=== PATIENT | female | born 1935 | race Caucasian/White ===

== ENCOUNTER 2018-09-21 19:52 | Emergency (ER) | payer MEDICARE, OTHER ==
[~2018-09-21] VITALS: Ht 154.9 cm; Wt 74.8 kg
[~2018-09-21 19:52] MED LIST: AMLODIPINE BESYL5 MG PO; CELEBREX200 MG PO; FOLIC ACID PO; LABETALOL HCL200 MG PO; METHOTREXATE2.5 MG PO; PREVACID15 M1 PO; SYNTHROID75 MCG PO; TRIAMTERENE-HC1 EAC2 PO
--- OUTSIDE RECORDS SUMMARY | 2018-09-21 19:56 | XMS REPORT | Summary of Care ---
Author Author [facility] Organization [facility] Address Unknown Phone Unavailable Encounter HQ Encntr_alileonela(FIN) [id number] Date(s): 07/07/16 - 07/07/16 [facility] [address] [place] [address]- Discharge Disposition: Home or Self Care Attending Physician: Hermelinda Handley MD Admitting Physician: Hermeilnda Handley MD Vital Signs No data available for this section Problem List No data available for this section Allergies, Adverse Reactions, Alerts Substance Reaction Severity Status penicillins Active Medications No data available for this section Results No data available for this section Immunizations No data available for this section Procedures No data available for this section Social History No data available for this section Assessment and Plan No data available for this section
--- OUTSIDE RECORDS SUMMARY | 2018-09-21 19:56 | XMS REPORT | Summary of Care ---
Author Author [facility] Address Unknown Phone Unavailable Encounter MARITA Smith(RYLEE) [id number] Date(s): 09/21/17 - 10/20/17 [facility] Encounter Diagnosis Other idiopathic scoliosis, thoracic region (Final) - 10/26/17 Age-related osteoporosis without current pathological fracture (Final) - Difficulty in walking, not elsewhere classified (Final) - Abnormal posture (Final) - Unspecified abnormalities of gait and mobility (Final) - Muscle weakness (generalized) (Final) - Discharge Disposition: Home or Self Care Attending Physician: Hermelinda Handley MD Vital Signs No data available [...]
--- OUTSIDE RECORDS SUMMARY | 2018-09-21 19:56 | XMS REPORT | Summary of Care ---
Author Author [facility] Organization [facility] Address Unknown Phone Unavailable Encounter HQ Encntr_alias(FIN) [id number] Date(s): 07/17/17 - 07/17/17 [facility] [address] [place] [address]- Discharge Disposition: Home or Self Care Attending [...]
--- OUTSIDE RECORDS SUMMARY | 2018-09-21 19:56 | XMS REPORT | Summary of Care ---
Author Author [facility] Organization [facility] Address Unknown Phone Unavailable Encounter HQ Encntr_alileonela(FIN) [id number] Date(s): 05/29/18 - 05/29/18 [facility] [address] [place] [phone] Discharge Disposition: Home or Self Care Attending Physician: Yesy Bhatia MD Referring Physician: Yesy Bhatia MD Vital Signs No data available for [...]
--- OUTSIDE RECORDS SUMMARY | 2018-09-21 19:56 | XMS REPORT | Summary of Care ---
Author Author [facility] [place] Organization [facility] [place] Address Unknown Phone Unavailable Encounter HQ Daynentr_lois(FIN) [id number] Date(s): 11/20/17 - 11/20/17 [facility] [place] [address] [place] [phone] Encounter Diagnosis Low back pain (Final) - 01/28/18 Discharge Disposition: Home or Self Care Attending Physician: Viola Lemus MD Referring Physician: Viola Lemus MD Vital Signs No data available for [...]
--- OUTSIDE RECORDS SUMMARY | 2018-09-21 19:56 | XMS REPORT | Continuity of Care Document ---
Author Author [facility] Address Unknown Phone Unavailable Care Team Providers Care Hydro Operator Name Role Phone [facility] Unavailable Unavailable Problems Problem Status Onset Date Classification Date Reported Comments Source Low back pain 01/28/2018 06/09/2018 [facility] [place] Other idiopathic scoliosis, thoracic region 10/27/2017 05/09/2018 [facility] [place] LBP Active 09/15/2017 [facility] [place] M51.37 Active 07/17/2017 [facility] Z79.1 Active 07/06/2016 [facility] Age-related osteoporosis without current pathological fracture 05/09/2018 [facility] [place] Difficulty in walking, not elsewhere classified 05/09/2018 [facility] [place] Abnormal posture 05/09/2018 [facility] [place] Unspecified abnormalities of gait and mobility 05/09/2018 [facility] [place] Muscle weakness 05/09/2018 [facility] [place] 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-STEROIDAL Active [facility] RHEUMATOID ARTHRITIS WITHOUT RHEUMATOID Active [facility] RHEUMATOID ARTHRITIS WITHOUT RHEUMATOID Active [facility] Medications No Data Provided for This Section Allergies, Adverse Reactions, Alerts Substance Category Reaction Severity Reaction type Status Date Reported Comments Source penicillins Assertion Drug allergy Active [facility] [place] Immunizations No Data Provided for This Section Results No Data Provided for This Section Pathology Reports No Data Provided for This Section Diagnostic Reports Report Value Date Source Spine lumbar wo contrast MRI Spine lumbar wo contrast MRI , 05/29/2018 8:17 CDT. CLINICAL INDICATION: 82 years Female M54.17 Radiculopathy, lumbosacral region - M54.17 Radiculopathy, lumbosacral region . Comparison: 11/20/2017 plain films TECHNIQUE: Sagittal T1, sagittal T2 with fat saturation, axial T1 and axial T2 images were obtained. FINDINGS: There is 20 degrees dextroscoliosis centered at L1-L2. L1-L2 and L2-L3 retrolisthesis measures up to 2 mm. Grade 1 L4-L5 and L5-S1 anterior listhesis measures up to 3 mm, without associated pars defect. The vertebrae are otherwise normal in shape, signal intensity and alignment. The intervertebral disks are used to desiccated. The paravertebral musculature demonstrates moderate fatty atrophy in keeping with deconditioning. The conus medullaris terminates low normal at the mid L2 level. There is no intradural mass lesion. T12-L1: Moderate disc height loss. Midline to left paracentral disc osteophyte complex with possible disc protrusion measures up to 4 mm anterior posteriorly with mild facet hypertrophy. This results in wuaq-wn-rqigncfj left canal stenosis with encroachment on the anterior cord. No significant neural foraminal narrowing. L1-L2: Moderate disc height loss. Wide-base midline subligamentous disc extrusion measures 5 mm anterior posteriorly and extends 3 mm below greater than above the level the disc superimposed mild disc bulge/disc osteophyte complexes exaggerated by the retrolisthesis and facet hypertrophy. This results in oqpu-wj-dwllmksq left greater than right canal and lateral recess narrowing with slight contact to the posterior left cord by the facets. No significant neural foraminal narrowing. L2-L3: Mild disc height loss. 3 mm disc bulge/disc osteophyte complexes and facet hypertrophy. This results in edoz-dl-jnfltokk left and mild right neural foraminal narrowing slight deformity of the left L2 nerve root. Mild to moderate canal stenosis with crowding of the cauda equina. No focal disc herniation. L3-L4: Mild disc height loss. 3 mm disc bulge and foraminal disc osteophyte complexes with mild facet hypertrophy. This results in mild canal and bilateral neural foraminal narrowing. There is epidural lipomatosis causing buckling of posterior dura. No focal disc herniation. L4-L5: Mild disc height loss. 4 mm disc bulge asymmetric to the left so that a left foraminal disc extrusion is suspected, extending 5 mm above the level the disc, exaggerated by the anterior listhesis with moderate facet hypertrophy. This results in moderate canal and left greater than right neural foraminal narrowing with near CSF block and impingement on the descending nerve roots. Moderate left and mild right neural foraminal narrowing with deformity of the left L4 foraminal/extraforaminal nerve root. L5-S1: Mild disc height loss. Right foraminal wide based disc extrusion measures 5 mm anterior posteriorly and extends 6 mm above the level the disc, exaggerated by the anterior listhesis with moderate right greater than left hypertrophy. This results in severe right neural foraminal narrowing with compression of the foraminal/extraforaminal L5 nerve root. Mild right greater than left lateral recess narrowing. No significant canal stenosis. IMPRESSION: 1. Multilevel disc herniations and focal disc osteophyte complexes, as detailed above. 2. Multilevel canal stenosis is up to moderate at L4-L5 with impingement of the nerve roots and near CSF block. 3. Multilevel neural foraminal narrowing including compression of the right L5 and deformity of the left L4 foraminal/extraforaminal nerve roots. There is also slight deformity of the left L2 foraminal nerve root. 4. Mild multilevel listhesis with moderate scoliosis. If there is clinical concern for instability, consider flexion-extension views. 05/29/2018 [facility] Spine lumbar 2 or 3 views DX EXAM: Spine lumbar 2 or 3 views DX DATE: 11/20/2017 at 1420 hours. INDICATION: - M54.5 Low back pain COMPARISON: 07/17/2017. TECHNIQUE: AP, lateral, and coned lateral radiographs of the lumbar spine. FINDINGS: Cholecystectomy clips project over the right upper quadrant. 5 lumbar type, non-rib bearing vertebral bodies are present. Unchanged, advanced scoliosis of the lumbar spine centered at L2. Vertebral body heights are overall unchanged. There is mild multilevel disc space narrowing with relative sparing at L3-L4. There is advanced facet arthropathy of the lower lumbar spine. No acute soft tissue abnormality is identified. IMPRESSION: No acute, radiographic abnormality of the lumbar spine. Overall, there has been no significant change when compared to 07/17/2017. 11/20/2017 [facility] [place] Spine lumbar 2 or 3 views DX Lumbar spine 3 views: There is marked scoliosis to the right at L1-L2. There are large osteophytes at L1 to and L2-L3.. Moderate osteophytes at L3-L4 are seen. There is no fracture or acute osseous abnormality. Hypertrophic facet arthropathy is seen at L4-L5 and L5-S1. The SI joints are within normal limits. Atherosclerotic calcification in the aorta is noted. Cholecystectomy clips are seen in the right upper quadrant. IMPRESSION: Severe scoliosis and degenerative changes without acute radiographic abnormalities in the lumbar spine. [id number] 07/17/2017 [facility] 2 views Bilateral DX Patient Name: DIANA ALVAREZ : 1935; Age: 80 years Female MR: [id number] Study: Hand 2 views Bilateral DX 07/07/2016 11:24 AM CDT CLINICAL INDICATION: M06.041 Rheumatoid arthritis without rheumatoid factor, right hand, M06.042 Rheumatoid arthritis without rheumatoid factor, left hand COMPARISON: Bilateral hands on 10/25/2006 FINDINGS: Views and laterality: Bilateral hands 2 views each Right: No displaced fracture or dislocation. Mild degenerative changes of the radiocarpal and 1st carpometacarpal joints. Minimal degenerative changes of the distal interphalangeal joints. No significant joint erosions. No gross soft tissue abnormalities. Left: No displaced fracture or dislocation. Moderate degenerative changes of the radiocarpal and 1st carpometacarpal joints. Mild degenerative changes of the distal interphalangeal joints. Minimal ulnar subluxation of the distal 5th phalanx. No significant joint erosions. No gross soft tissue abnormalities. IMPRESSION: No acute bony abnormalities. Osteoarthritic changes of both hands as described. The degenerative changes involving the left 1st carpometacarpal joint have progressed when compared to 10/25/2006. SL: [id number] 07/07/2016 [facility] Consultation Notes No Data Provided for This Section Discharge Summaries No Data Provided for This Section History and Physicals No Data Provided for This Section Vital Signs No Data Provided for This Section Encounters Location Location Details Encounter Type Encounter Number Reason For Visit Attending Provider ADM Date DC Date Status Source [facility] Outpatient [id number] Hermelinda Handley 07/07/2016 07/08/2016 [facility] Outpatient [id number] Hermelinda Ender 07/17/2017 07/18/2017 [facility] OP Therapy Patients [id number] Hermelinda Handley 09/21/2017 10/21/2017 [facility] [place] [facility] [id number] Viola Lemus 11/20/2017 11/21/2017 [facility] [place] [facility] [place] Out[facility] [id number] Yesy Bhatia 05/29/2018 05/30/2018 [facility] [place] Procedures No Data Provided for This Section Assessment and Plan No Data Provided for This Section Plan of Care No Data Provided for This Section Social History Social History Date Source No data available for this section 11/21/2017 [facility] [place] No data available for this section 10/21/2017 [facility] [place] No data available for this section 07/18/2017 [facility] Family History No Data Provided for This Section Advance Directives No Data Provided for This Section Functional Status No Data Provided for This Section
[2018-09-21] MEDS ORDERED: TRAMADOL HCL 50 MG TAB PO ONE (20:00)
[2018-09-21] MEDS ORDERED: TRAMADOL HCL 50 MG TAB ONE (20:05)
--- NOTE | 2018-09-21 20:28 | Diagnostic Imaging Report ---
LEFT WRIST X-RAY - 3 VIEWS HISTORY: ^S/P FALL ^[id number] ^2009 ^Y COMPARISON: None available. FINDINGS: Bones: Acute mildly displaced oblique fracture of the distal left radius with associated 30 degrees in relation of the bony fragments. There is no intra-articular extension. Diffuse bone demineralization. Joints: Moderate degenerative changes of the carpometacarpal joints. Soft tissues: The soft tissues appear unremarkable. IMPRESSION: Acute mildly displaced and angulated fracture of the distal left radius. Signed by: Dr. Vilma Rojas M.D. on 09/21/2018 8:24 PM
[2018-09-24] MEDS ORDERED: GABAPENTIN300 MG PO (12:39)
[2018-09-24] MEDS ORDERED: SERTRALINE HCL50 MG PO (12:39)
== END 2018-09-21 20:44 | disposition home or self-care (01) ==
LOC: ER 19:52
DX: S52.502A Unspecified fracture of the lower end of left radius, initial encounter for closed fracture (principal); W01.0XXA Fall on same level from slipping, tripping and stumbling without subsequent striking against object, initial encounter; Y92.017 Garden or yard in single-family (private) house as the place of occurrence of the external cause; I10 Essential (primary) hypertension; E03.9 Hypothyroidism, unspecified
CPT/HCPCS: 99284

== ENCOUNTER → 2018-09-26 | Day surgery (SDC) | payer MEDICARE ==
[2018-09-24 13:37] LABS: BASOPHILS # (AUTO) 0.1 (0.0-0.1); BASOPHILS % 0.5 % (0.0-1.0); EOSINOPHILS # (AUTO) 0.3 (0.0-0.4); EOSINOPHILS % 2.3 % (0.0-6.0); HEMATOCRIT 43.2 % (34.2-44.1); HEMOGLOBIN 13.8 g/dL (12.0-16.0); LYMPHOCYTES # (AUTO) 2.1 (1.0-3.2); LYMPHOCYTES % 15.3 % (18.0-39.1); MEAN CORPUSCULAR HEMOGLOBIN 30.1 pg (28-32); MEAN CORPUSCULAR HGB CONC 31.9 g/dL (31-35); MEAN CORPUSCULAR VOLUME 94.1 fL (81-99); MONOCYTES # (AUTO) 1.3 (0.2-0.8); MONOCYTES % 9.7 % (4.4-11.3); NEUTROPHILS # (AUTO) 9.9 (2.1-6.9); NEUTROPHILS % 71.3 % (38.7-80.0); PLATELET COUNT 275 x10e3/uL (140-360); RED BLOOD COUNT 4.59 x10e6/uL (3.6-5.1); RED CELL DISTRIBUTION WIDTH 14.1 % (11.7-14.4)
--- NOTE | 2018-09-24 13:46 | Diagnostic Imaging Report ---
EXAMINATION: CHEST 2 VIEWS INDICATION: Pre-operative COMPARISON: None FINDINGS: TUBES and LINES: None. LUNGS: The lungs are moderately inflated. No focal consolidation or pulmonary edema. PLEURA: No pleural effusion or pneumothorax. HEART AND MEDIASTINUM: The cardiomediastinal silhouette is normal in size and contour. Atherosclerotic calcifications of the thoracic aorta. BONES AND SOFT TISSUES: No acute fracture or dislocation. Old healed fracture deformity of left sixth lateral rib. Degenerative changes of the thoracic spine. UPPER ABDOMEN: No free air under the diaphragm. IMPRESSION: No focal pneumonia or pulmonary edema. Signed by: Gautam Coronel MD on 09/24/2018 1:43 PM
[2018-09-24 15:12] LABS: ANION GAP 16.3 mmol/L (8-16); BLOOD UREA NITROGEN 16 mg/dL (7-26); BUN/CREATININE RATIO 19 (6-25); CALCIUM 9.6 mg/dL (8.4-10.2); CARBON DIOXIDE 26 mmol/L (22-29); CHLORIDE 101 mmol/L (98-107); CREATININE, SERUM 0.86 mg/dL (0.57-1.11); EST GLOMERULAR FILTRATION RATE > 60 ML/MIN (60-); GLUCOSE 103 mg/dL (74-118); POTASSIUM 4.3 mmol/L (3.5-5.1); SODIUM 139 mmol/L (136-145)
[~2018-09-26] MED LIST changes: +ACETAMINOPHEN 1000 MG/100 ML IV ONE; +ACETAMINOPHEN/CODEINE 300MG - 30MG TAB ONE; +BACITRACIN 50,000 UNIT VIAL ONE; +BUPIVACAINE HCL 0.5% INJ 30 ML VIAL INJ ONE; +CLINDAMYCIN PHOS 900MG/ 50ML 50 ML IV ONE; +DEXAMETHASONE SOD PHOS INJ 4 MG/ML VIAL ONE; +FENTANYL CITRATE/PF 100MCG/2 ML INJ ONE; +GABAPENTIN300 MG PO; +LIDOCAINE HCL 2% LOCAL INJ 5 ML SDV VIAL INJ ONE; +ONDANSETRON HCL INJ 2MG/ML 2ML 2 MG/ML VIAL ONE; +PROPOFOL IV EMULSION 10 MG/ML 20 ML VIAL ONE; +SERTRALINE HCL50 MG PO; +SEVOFLURANE INHAL SOLN 250 ML PEN BTL ONE
--- OUTSIDE RECORDS SUMMARY | 2018-09-26 10:11 | XMS REPORT | Continuity of Care Document ---
Author Author [facility] Address Unknown Phone Unavailable Care Team Providers Care Head Of Marketing Name Role Phone [facility] Unavailable Unavailable Problems Problem Status Onset Date Classification Date Reported Comments Source Low back pain 01/28/2018 06/09/2018 [facility] [place] Other idiopathic scoliosis, thoracic region 10/27/2017 05/09/2018 [facility] [place] LBP Active 09/15/2017 [facility] [place] M51.37 Active 07/17/2017 [facility] Z79.1 Active 07/06/2016 [facility] Age-related osteoporosis without current pathological fracture 05/09/2018 [facility] [place] Difficulty in walking, not elsewhere classified 05/09/2018 [facility] [place] Abnormal posture 05/09/2018 [facility] [place] Unspecified abnormalities of gait and mobility 05/09/2018 [facility] [place] Muscle weakness 05/09/2018 [facility] [place] 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 This results in xdqt-gx-fisxqawi left canal stenosis with encroachment on the anterior cord. No significant neural foraminal narrowing. L1-L2: Moderate disc height loss. Wide-base midline subligamentous disc extrusion measures 5 mm anterior posteriorly and extends 3 mm below greater than above the level the disc superimposed mild disc bulge/disc osteophyte complexes exaggerated by the retrolisthesis and facet hypertrophy. This results in bmto-kz-ycoqmuma left greater than right canal and lateral recess narrowing with slight contact to the posterior left cord by the facets. No significant neural foraminal narrowing. L2-L3: Mild disc height loss. 3 mm disc bulge/disc osteophyte complexes and facet hypertrophy. This results in hwik-un-qzeyrkfz left and mild right neural foraminal narrowing [...] acute radiographic abnormalities in the lumbar spine. [id number] 07/17/2017 [facility] 2 views Bilateral DX Patient Name: DIANA ALVAREZ : 1935; Age: 80 years Female MR: [id number] Study: Hand 2 views Bilateral DX 07/07/2016 [...] have progressed when compared to 10/25/2006. SL: [id number] 07/07/2016 [facility] Consultation Notes No Data Provided for This Section Discharge Summaries No Data Provided for This Section History and Physicals No Data Provided for This Section Vital Signs No Data Provided for This Section Encounters Location Location Details Encounter Type Encounter Number Reason For Visit Attending Provider ADM Date DC Date Status Source [facility] Outpatient [id number] Hermelinda Handley 07/07/2016 07/08/2016 [facility] Outpatient [id number] Hermelinda Ender 07/17/2017 07/18/2017 [facility] OP Therapy Patients [id number] Hermelinda Handley 09/21/2017 10/21/[address] [facility] [place] Out[facility] Di[facility] [id number] Viola Lemus 11/20/2017 11/21/2017 [facility] [place] [facility] [place] Out[facility] [id number] Yesy Bhatia 05/29/2018 05/30/2018 [facility] [place] Procedures No Data Provided for This Section Assessment and Plan No Data Provided for This Section Plan of Care No Data Provided for This Section Social History Social History Date Source No data available for this section 11/21/2017 [facility] [place] No data available for this section 10/21/2017 [facility] [place] No data available for this section 07/18/2017 [facility] Family History No Data Provided for This Section Advance Directives No Data Provided for This Section Functional Status No Data Provided for This Section
--- OUTSIDE RECORDS SUMMARY | 2018-09-26 10:12 | XMS REPORT ---
[facility] Address Unknown Phone Unavailable Care Team Providers Care Animal Keeper Name Role Phone SAROJ DELANEY Unavailable Unavailable Kathryn SANDHU Unavailable Unavailable Problems This patient has no known problems. Allergies, Adverse Reactions, Alerts This patient has no known allergies or adverse reactions. Medications This patient has no known medications. Results Test Description Test Time Test Comments Text Results Atomic Results Result Comments CHEST 2 VIEWS 2018-09-24 13:38:00 [place] [address] Patient Name: DIANA ALVAREZ MR #: [id number] : 1935 Age/Sex: 82/F Req #: [id number] Adm Physician: Ordered by: SAROJ DELANEY MD Report #: [id number] Location: OR Room/Bed: Procedure: [id number] DX/CHEST 2 VIEWS Exam Date: 09/24/18 Exam Time: 1314 REPORT STATUS: Signed EXAMINATION: CHEST 2 VIEWS INDICATION: Pre-operative COMPARISON: None FINDINGS: TUBES and LINES: None. LUNGS: The lungs are moderately inflated. No focal consolidation or pulmonary edema. PLEURA: No pleural effusion or pneumothorax. HEART AND MEDIASTINUM: The cardiomediastinal silhouette is normal in size and contour. Atherosclerotic calcifications of the thoracic aorta. BONES AND SOFT TISSUES: No acute fracture or dislocation. Old healed fracture deformity of left sixth lateral rib. Degenerative changes of the thoracic spine. UPPER ABDOMEN: No free air under the diaphragm. IMPRESSION: No focal pneumonia or pulmonary edema. Signed by: Santy Moss MD on 09/24/2018 1:43 PM Dictated By: SANTY MOSS MD 42 Transcribed By: KALEY on 09/24/181342 COPY TO: SAROJ DELANEY MD WRIST COMPLETE LEFT 2018-09-21 20:23:00 [place] [address] Patient Name: DIANA ALVAREZ MR #: [id number] : 1935 Age/Sex: 82/F Req #: [id number] Adm Physician: Ordered by: LETITIA SANDHU MD Report #: [id number] Location: ER Room/Bed: Procedure: [id number] DX/WRIST COMPLETE LEFT Exam Date: 09/21/18 Exam Time: 2009 REPORT STATUS: Signed LEFT WRIST X-RAY - 3 VIEWS HISTORY: S/P FALL [id number] Y COMPARISON: None available. FINDINGS: Bones: Acute mildly displaced oblique fracture of the distal left radius with associated 30 degrees in relation of the bony fragments. There is no intra-articular extension. Diffuse bone demineralization. Joints: Moderate degenerative changes of the carpometacarpal joints. Soft tissues: The soft tissues appear unremarkable. IMPRESSION: Acute mildly displaced and angulated fracture of the distal left radius. Signed by: Dr. Pedro Luis Patterson M.D. on 09/21/2018 8:24 PM Dictated By: PEDRO LUIS PATTERSON MD 23 Transcribed By: KALEY on 09/21/182023 COPY TO: LETITIA SANDHU MD
[2018-09-26 13:30] VITALS: BP 126/67
--- NOTE | 2018-09-27 12:28 | Operative Report ---
DATE OF PROCEDURE: 09/26/2018 SURGEON: Desmond Brandt MD PREOPERATIVE DIAGNOSIS: Displaced left distal radial shaft fracture. POSTOPERATIVE DIAGNOSIS: Displaced left distal radial shaft fracture. OPERATION AND PROCEDURE PERFORMED: The patient underwent open reduction and internal fixation of the displaced left distal radius shaft fracture. ASSISTANT ATTORNEY GENERAL: KAMILA Arroyo. ANESTHESIA: General endotracheal intubation anesthesia. IV FLUIDS: Per the anesthesia record. BRIEF DESCRIPTION OF THE PATIENT'S OPERATIVE PROCEDURE: Ms. Cook was taken to the operating room, placed in supine position on the operating table. Following induction of general anesthesia as well as endotracheal intubation, patient's left upper extremity was examined under anesthesia. She does not have bruising and ecchymosis involving the left distal forearm and radius. Fluoroscopic evaluation of this area demonstrated an oblique fracture of the distal radial shaft with displacement. The patient's upper extremity was prepped and draped in standard surgical fashion. The case was begun by creating a volar approach to the distal radius. This incision was carried through skin only. Blunt dissection was used to deepen the incision to the level of the radial shaft and pronator quadratus muscle. The pronator quadratus was elevated from the distal radius and the fracture was found to be located in the proximal aspect of the quadratus muscular insertion site. This fracture was clean and realigned with the proximal shaft. It was held in place by a fracture reduction clamp. A plate was then chosen and affixed to the volar surface of the radius with locking screws. This resulted in stabilization of her fracture. Fluoroscopic evaluation demonstrated reduction of the injury and excellent realignment of the radius. The wound was copiously irrigated. The soft tissues were closed in a multilayer fashion. The patient was then placed in a well-padded sugar-tong splint. She was awakened and then taken to the postanesthesia care unit in stable condition. MD JI Palacio/RUSTAM /[id number]
== END | disposition home or self-care (01) ==
LOC: OR 10:09
PROVIDERS: ATTEND Specialist
DX: S52.302A Unspecified fracture of shaft of left radius, initial encounter for closed fracture (principal); M06.9 Rheumatoid arthritis, unspecified; M19.90 Unspecified osteoarthritis, unspecified site; E03.9 Hypothyroidism, unspecified; I10 Essential (primary) hypertension; K29.70 Gastritis, unspecified, without bleeding; K21.9 Gastro-esophageal reflux disease without esophagitis; K28.9 Gastrojejunal ulcer, unspecified as acute or chronic, without hemorrhage or perforation; I45.10 Unspecified right bundle-branch block; W01.0XXA Fall on same level from slipping, tripping and stumbling without subsequent striking against object, initial encounter; Y92.007 Garden or yard of unspecified non-institutional (private) residence as the place of occurrence of the external cause; Z88.0 Allergy status to penicillin; Z01.810 Encounter for preprocedural cardiovascular examination; Z01.812 Encounter for preprocedural laboratory examination; Z01.818 Encounter for other preprocedural examination; Z68.31 Body mass index [BMI] 31.0-31.9, adult
CPT/HCPCS: 25515; 36415; 71046; 76000; 80048; 85025; 93005; C1713 ×2; J0131; J1100; J2001; J2405; J2704; J3010

== ENCOUNTER 2018-11-21 14:00 | Outpatient (RCR) | payer MEDICARE ==
[~2018-11-21 14:00] MED LIST changes: -ACETAMINOPHEN 1000 MG/100 ML IV ONE; -ACETAMINOPHEN/CODEINE 300MG - 30MG TAB ONE; -BACITRACIN 50,000 UNIT VIAL ONE; -BUPIVACAINE HCL 0.5% INJ 30 ML VIAL INJ ONE; -CLINDAMYCIN PHOS 900MG/ 50ML 50 ML IV ONE; -DEXAMETHASONE SOD PHOS INJ 4 MG/ML VIAL ONE; -FENTANYL CITRATE/PF 100MCG/2 ML INJ ONE; -LIDOCAINE HCL 2% LOCAL INJ 5 ML SDV VIAL INJ ONE; -ONDANSETRON HCL INJ 2MG/ML 2ML 2 MG/ML VIAL ONE; -PROPOFOL IV EMULSION 10 MG/ML 20 ML VIAL ONE; -SEVOFLURANE INHAL SOLN 250 ML PEN BTL ONE
== END 2018-11-26 ==
LOC: OT 14:00
PROVIDERS: ATTEND Specialist
DX: S52.502D Unspecified fracture of the lower end of left radius, subsequent encounter for closed fracture with routine healing (principal); M25.632 Stiffness of left wrist, not elsewhere classified; R53.1 Weakness

== ENCOUNTER 2018-11-27 13:54 | Outpatient (RCR) | payer MEDICARE | END 2018-12-27 | LOC: OT 13:54 | PROVIDERS: ATTEND Specialist | DX: S52.502A Unspecified fracture of the lower end of left radius, initial encounter for closed fracture (principal) ==